=== PATIENT | female | born 1980 | race African-American/Black ===

== ENCOUNTER 2016-11-14 19:42 | Emergency (ER) | payer OTHER ==
[~2016-11-14] VITALS: Ht 165.1 cm; Wt 122.5 kg
--- NOTE | ~2016-11-14 | EKG ---
[place] [address] [address] [facility] [place] [address] ELECTROCARDIOGRAM REPORT Name: ISSAC BRARFORD Viveros Room #: 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 : 1980 Requested By: Ariadna Li Order Number: [id number] MD: Demetrius Nichols Measurements Intervals [place] Rate: 82 P: 36 [place]: 162 QRS: -11 QRSD: 99 T: 18 QT: 368 QTc: 430 Interpretive Statements Sinus rhythm Left ventricular hypertrophy Baseline wander in lead(s) V6 No previous ECG available for comparison Electronically Signed On 11-15-2016 7:49:27 CDT by Demetrius Nichols [email or web address] <ELECTRONICALLY SIGNED> By: Demetrius Nichols MD, [facility] 11/15/16 0749 30 30 Demetrius Nichols MD, FACC /EPI
[~2016-11-14 19:42] MED LIST: CLEOCIN HCL300 MG PO; NOHOMEMEDICATIONS; NORCO 5-325 TA1 EACH PO; PERCOCET 5-3251 EACH PO
[2016-11-14] MEDS ORDERED: ACETAMINOPHEN-1 EAC1 PO (19:54)
[2016-11-14] MEDS ORDERED: FLEXERIL PO (19:54)
[2016-11-14] MEDS ORDERED: IRON325 PO (19:54)
[2016-11-14] MEDS ORDERED: GLUCOPHAGE XR750 MG PO (19:54)
[2016-11-14 20:30] LABS: HEMATOCRIT 34.7 % (37.0-47.0); HEMOGLOBIN 10.9 gm/dL (12.0-15.0); MANUAL DIFF YES; MCH 20.7 pg (26.0-34.0); MCHC 31.5 g/dL (28.0-37.0); MCV 65.5 fL (80.0-100.0); PLATELET COUNT 334 thou/uL (150-400); RDW 25.7 % (10.5-14.5); WBC 8.9 thou/uL (4.0-11.0)
[2016-11-14 20:38] LABS: ANION GAP 7 mmol/L (7-16); BUN 10 mg/dL (7-18); CALCIUM 9.1 mg/dL (8.5-10.1); CHLORIDE 101 mmol/L (98-107); CO2 27 mmol/L (21-32); GLUCOSE 97 mg/dL (74-106); POTASSIUM 3.5 mmol/L (3.5-5.1); SODIUM 135 mmol/L (136-145)
[2016-11-14 20:46] LABS: TROPONIN-I < 0.04 ng/mL (<0.04-0.07)
[2016-11-14] MEDS ORDERED: NORCO 5-325 TA1 EACH PO (20:47)
[2016-11-14 20:49] LABS: ABSOLUTE NEUTROPHILS 4.5 thou/uL (1.4-8.2); TOTAL CELL COUNT 100
[2016-11-14 20:50] LABS: ANISOCYTOSIS 2+; HYPOCHROMASIA 2+; MICROCYTES 2+
[2016-11-14 20:51] LABS: POIKILOCYTOSIS SLIGHT; POLYCHROMASIA SLIGHT
[2016-11-14 21:20] VITALS: BP 138/74
== END 2016-11-14 21:20 | disposition home or self-care (01) ==
LOC: ER 19:42
PROVIDERS: Emergency Medicine
DX: M54.12 Radiculopathy, cervical region (principal); K21.9 Gastro-esophageal reflux disease without esophagitis; E66.9 Obesity, unspecified; I10 Essential (primary) hypertension; F17.210 Nicotine dependence, cigarettes, uncomplicated; Z88.6 Allergy status to analgesic agent

== ENCOUNTER 2018-11-29 14:27 | Emergency (ER) | payer OTHER ==
[~2018-11-29] VITALS: Ht 167.6 cm; Wt 133.8 kg
[~2018-11-29 14:27] MED LIST changes: +ACETAMINOPHEN-1 EAC1 PO; +FLEXERIL PO; +GLUCOPHAGE XR750 MG PO; +IRON325 PO
[2018-11-29 15:13] LABS: ABSOLUTE NEUTROPHILS 1.9 thou/uL (1.4-8.2); BASOPHILS 1.5 % (0.0-2.0); EOSINOPHILS 0.1 % (0.0-3.0); HEMATOCRIT 41.4 % (37.0-47.0); HEMOGLOBIN 13.6 gm/dL (12.0-15.0); LYMPHOCYTES 42.2 % (24.0-44.0); MCHC 32.8 g/dL (28.0-37.0); MCV 79.2 fL (80.0-100.0); MONOCYTES 6.1 % (1.0-8.0); PLATELET COUNT 265 thou/uL (150-400); POLYS 50.1 % (36.0-66.0); RBC 5.23 mil/uL (4.20-5.00); RDW 15.6 % (10.5-14.5); WBC 3.9 thou/uL (4.0-11.0)
[2018-11-29 15:19] LABS: ANION GAP 8 mmol/L (7-16); BUN 8 mg/dL (7-18); CALCIUM 9.4 mg/dL (8.5-10.1); CHLORIDE 97 mmol/L (98-107); CO2 27 mmol/L (21-32); CREATININE 1.1 mg/dL (0.6-1.0); GLUCOSE 119 mg/dL (74-106); POTASSIUM 3.4 mmol/L (3.5-5.1); SODIUM 132 mmol/L (136-145)
[2018-11-29 15:29] LABS: ALBUMIN 3.6 g/dL (3.4-5.0); SGOT 21 U/L (15-37); SGPT 23 U/L (30-65); TOTAL BILIRUBIN 0.2 mg/dL (<0.1-1.0); TOTAL PROTEIN 8.1 g/dL (6.4-8.2); TROPONIN-I <0.06 ng/mL (<0.06)
[2018-11-29] MEDS ORDERED: COZAAR 25 MG TA25 M1 PO (15:33)
[2018-11-29 16:28] LABS: URINE BILIRUBIN NEGATIVE (Negative); URINE BLOOD 1+ (Negative); URINE CLARITY CLEAR; URINE COLOR YELLOW; URINE GLUCOSE-RANDOM* NEGATIVE (Negative); URINE KETONES NEGATIVE (Negative); URINE LEUKOCYTES-REFLEX NEGATIVE (Negative); URINE NITRITE-REFLEX NEGATIVE (Negative); URINE PROTEIN (DIPSTICK) NEGATIVE (Negative); URINE UROBILINOGEN 0.2 E.U./dl (0.2-1.0)
[2018-11-29 16:38] LABS: BACTERIA-REFLEX 1-9 Few /HPF (None Seen); CASTS None Seen /LPF (None Seen); CRYSTALS None Seen /LPF (None Seen); SQUAMOUS 0-3 Few /LPF (0-3); URINE RBC 0-2 Rare /HPF (0-2); URINE WBC-REFLEX None Seen /HPF (0-5)
[2018-11-29] MEDS ORDERED: NORFLEX100 MG PO (17:31)
[2018-11-29] MEDS ORDERED: MOBIC15 MG PO (17:31)
[2018-11-29 17:54] VITALS: BP 132/89
--- NOTE | 2018-11-30 07:57 | EKG ---
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[facility] : 1980 Requested By: Christie Kinney Order Number: [id number] MD: Demetrius Nichols Measurements Intervals [place] Rate: 93 P: 38 [place]: 161 QRS: -20 QRSD: 95 T: 28 QT: 333 QTc: 415 Interpretive Statements Sinus rhythm Borderline left axis deviation Compared to ECG 11/14/2016 20:31:26 No significant change was found Electronically Signed On 11-30-2018 7:57:23 CDT by Demetrius Nichols [email or web address] ��������������������������������������������� <ELECTRONICALLY SIGNED> ���������������������������������������� By: Demetrius Nichols MD, [facility] ��������������������������������������������� 11/30/18 0757 1442 1442 Demetrius Nichols MD, FACC /EPI
== END 2018-11-29 17:55 | disposition home or self-care (01) ==
LOC: ER 14:27
PROVIDERS: Physician Assistant
DX: S76.112A Strain of left quadriceps muscle, fascia and tendon, initial encounter (principal); G44.209 Tension-type headache, unspecified, not intractable; R53.1 Weakness; I10 Essential (primary) hypertension; F17.210 Nicotine dependence, cigarettes, uncomplicated; Z86.718 Personal history of other venous thrombosis and embolism; Z98.51 Tubal ligation status; Z79.84 Long term (current) use of oral hypoglycemic drugs; Z79.899 Other long term (current) drug therapy; Z88.5 Allergy status to narcotic agent; X58.XXXA Exposure to other specified factors, initial encounter; Y93.89 Activity, other specified; Y92.89 Other specified places as the place of occurrence of the external cause; Y99.8 Other external cause status

== ENCOUNTER 2019-06-27 08:29 | Emergency (ER) | payer OTHER ==
[~2019-06-27] VITALS: Ht 172.7 cm; Wt 136.1 kg
[~2019-06-27 08:29] MED LIST changes: +COZAAR 25 MG TA25 M1 PO; +MOBIC15 MG PO; +NORFLEX100 MG PO
[2019-06-27] MEDS ORDERED: HYDROCHLOROTHIA25 M2 PO (08:46)
[2019-06-27] MEDS ORDERED: METFORMIN HCL500 M3 PO (08:46)
[2019-06-27 09:20] LABS: APTT 35.2 Seconds (24.5-32.8); PROTIME 10.1 Seconds (9.3-11.4)
[2019-06-27 09:24] LABS: URINE BILIRUBIN NEGATIVE (Negative); URINE BLOOD 3+ (Negative); URINE CLARITY CLOUDY; URINE GLUCOSE-RANDOM* NEGATIVE (Negative); URINE KETONES NEGATIVE (Negative); URINE LEUKOCYTES-REFLEX NEGATIVE (Negative); URINE NITRITE-REFLEX NEGATIVE (Negative); URINE PROTEIN (DIPSTICK) NEGATIVE (Negative); URINE UROBILINOGEN 0.2 E.U./dl (0.2-1.0)
[2019-06-27 09:25] LABS: URINE COLOR RED
[2019-06-27 09:26] LABS: CASTS None Seen /LPF (None Seen); CRYSTALS None Seen /LPF (None Seen); SQUAMOUS 0-3 Few /LPF (0-3)
[2019-06-27 09:27] LABS: BACTERIA-REFLEX 1-9 Few /HPF (None Seen); URINE RBC >20 Many /HPF (0-2); URINE WBC-REFLEX 0-5 Rare /HPF (0-5)
[2019-06-27 09:44] LABS: ABSOLUTE NEUTROPHILS 3.5 thou/uL (1.4-8.2); BASOPHILS 1.4 % (0.0-2.0); EOSINOPHILS 1.2 % (0.0-3.0); HEMATOCRIT 39.1 % (37.0-47.0); HEMOGLOBIN 12.4 gm/dL (12.0-15.0); MCH 24.9 pg (26.0-34.0); MCHC 31.7 g/dL (28.0-37.0); MCV 78.7 fL (80.0-100.0); PLATELET COUNT 391 thou/uL (150-400); POLYS 54.4 % (36.0-66.0); RBC 4.98 mil/uL (4.20-5.00); RDW 16.4 % (10.5-14.5); WBC 6.4 thou/uL (4.0-11.0)
[2019-06-27 09:47] LABS: CALCIUM 9.3 mg/dL (8.5-10.1); CREATININE 0.8 mg/dL (0.6-1.0); POTASSIUM 3.8 mmol/L (3.5-5.1)
[2019-06-27 09:53] LABS: ALBUMIN 3.6 g/dL (3.4-5.0); TOTAL BILIRUBIN 0.2 mg/dL (<0.1-1.0); TOTAL PROTEIN 7.8 g/dL (6.4-8.2)
[2019-06-27] MEDS ORDERED: TRAMADOL 50 MG50 MG PO (10:23)
[2019-06-27 10:33] VITALS: BP 139/81
== END 2019-06-27 10:36 | disposition home or self-care (01) ==
LOC: ER 08:29
PROVIDERS: Emergency Medicine
DX: D25.9 Leiomyoma of uterus, unspecified (principal); F17.210 Nicotine dependence, cigarettes, uncomplicated; Z98.51 Tubal ligation status; Z88.6 Allergy status to analgesic agent

== ENCOUNTER 2019-11-29 09:47 | Emergency (ER) | payer BC ==
[~2019-11-29] VITALS: Ht 170.2 cm; Wt 131.1 kg
[~2019-11-29 09:47] MED LIST changes: +HYDROCHLOROTHIA25 M2 PO; +METFORMIN HCL500 M3 PO; +TRAMADOL 50 MG50 MG PO
[2019-11-29 11:00] VITALS: BP 150/81
[2019-11-29] MEDS ORDERED: TRAMADOL 50 MG50 MG PO (11:03)
== END 2019-11-29 11:00 | disposition home or self-care (01) ==
LOC: ER 09:47
DX: M25.471 Effusion, right ankle (principal); I10 Essential (primary) hypertension; F17.210 Nicotine dependence, cigarettes, uncomplicated; Z88.6 Allergy status to analgesic agent; Z79.899 Other long term (current) drug therapy; Z98.51 Tubal ligation status

== ENCOUNTER 2019-12-05 10:38 | Emergency (ER) | payer BC ==
[~2019-12-05] VITALS: Ht 167.6 cm; Wt 123.4 kg
[2019-12-05] MEDS ORDERED: PREDNISONE 20 M20 MG PO (13:00)
[2019-12-05 13:04] VITALS: BP 141/92
[2019-12-05] MEDS ORDERED: BENADRYL25 MG PO (23:01)
[2019-12-06] MEDS ORDERED: HEARTBURN PREVE20 MG PO (01:09)
== END 2019-12-05 13:09 | disposition home or self-care (01) ==
LOC: ER 10:38
DX: T78.3XXA Angioneurotic edema, initial encounter (principal); I10 Essential (primary) hypertension; F17.210 Nicotine dependence, cigarettes, uncomplicated; Z98.51 Tubal ligation status; Z79.899 Other long term (current) drug therapy; Z88.8 Allergy status to other drugs, medicaments and biological substances

== ENCOUNTER 2019-12-05 22:51 | Emergency (ER) | payer BC ==
[~2019-12-05] VITALS: Ht 167.6 cm; Wt 129.7 kg
--- NOTE | ~2019-12-05 | EKG ---
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
--- NOTE | ~2019-12-05 | EKG ---
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
[~2019-12-05 22:51] MED LIST changes: +PREDNISONE 20 M20 MG PO
[2019-12-05] MEDS ORDERED: BENADRYL25 MG PO (23:01)
[2019-12-05 23:42] LABS: ABSOLUTE NEUTROPHILS 4.8 thou/uL (1.4-8.2); BASOPHILS 1.2 % (0.0-2.0); EOSINOPHILS 0.9 % (0.0-3.0); HEMATOCRIT 37.9 % (37.0-47.0); HEMOGLOBIN 12.8 gm/dL (12.0-15.0); LYMPHOCYTES 37.8 % (24.0-44.0); MCH 25.9 pg (26.0-34.0); MCHC 33.7 g/dL (28.0-37.0); MCV 76.8 fL (80.0-100.0); MONOCYTES 5.9 % (1.0-8.0); PLATELET COUNT 345 thou/uL (150-400); POLYS 54.2 % (36.0-66.0); RBC 4.94 mil/uL (4.20-5.00); WBC 8.8 thou/uL (4.0-11.0)
[2019-12-05 23:49] LABS: ANION GAP 12 mmol/L (7-16); BUN 6 mg/dL (7-18); CALCIUM 9.3 mg/dL (8.5-10.1); CHLORIDE 99 mmol/L (98-107); CO2 25 mmol/L (21-32); CREATININE 0.9 mg/dL (0.6-1.0); GLUCOSE 109 mg/dL (74-106); POTASSIUM 3.2 mmol/L (3.5-5.1); SODIUM 136 mmol/L (136-145)
[2019-12-06] LABS: ALBUMIN 3.9 g/dL (3.4-5.0); LIPASE 162 U/L (73-393); SGOT 18 U/L (15-37); SGPT 24 U/L (30-65); TOTAL BILIRUBIN 0.2 mg/dL (0.2-1.0); TROPONIN-I <0.06 ng/mL (<0.06)
[2019-12-06 01:08] VITALS: BP 163/101
[2019-12-06] MEDS ORDERED: HEARTBURN PREVE20 MG PO (01:09)
== END 2019-12-06 01:17 | disposition home or self-care (01) ==
LOC: ER 22:51
PROVIDERS: Emergency Medicine
DX: K13.0 Diseases of lips (principal); T78.3XXA Angioneurotic edema, initial encounter; I10 Essential (primary) hypertension; F17.210 Nicotine dependence, cigarettes, uncomplicated; Z79.899 Other long term (current) drug therapy; Z88.6 Allergy status to analgesic agent; Z88.8 Allergy status to other drugs, medicaments and biological substances; Z98.51 Tubal ligation status; Y92.89 Other specified places as the place of occurrence of the external cause

== ENCOUNTER 2019-12-13 07:43 | Emergency (ER) | payer BC ==
[~2019-12-13] VITALS: Ht 167.6 cm; Wt 126.1 kg
[~2019-12-13 07:43] MED LIST changes: +BENADRYL25 MG PO; +HEARTBURN PREVE20 MG PO
--- NOTE | 2019-12-13 08:15 | EKG ---
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
[2019-12-13 08:22] LABS: ABSOLUTE NEUTROPHILS 3.2 thou/uL (1.4-8.2); BASOPHILS 0.6 % (0.0-2.0); HEMATOCRIT 38.9 % (37.0-47.0); LYMPHOCYTES 42.6 % (24.0-44.0); MCH 25.9 pg (26.0-34.0); MCHC 33.5 g/dL (28.0-37.0); MCV 77.6 fL (80.0-100.0); MONOCYTES 5.6 % (1.0-8.0); PLATELET COUNT 346 thou/uL (150-400); POLYS 50.2 % (36.0-66.0); RBC 5.02 mil/uL (4.20-5.00); RDW 16.5 % (10.5-14.5); WBC 6.3 thou/uL (4.0-11.0)
[2019-12-13 08:30] LABS: ANION GAP 10 mmol/L (7-16); BUN 7 mg/dL (7-18); CALCIUM 9.3 mg/dL (8.5-10.1); CHLORIDE 100 mmol/L (98-107); CO2 28 mmol/L (21-32); CREATININE 0.8 mg/dL (0.6-1.0); GLUCOSE 118 mg/dL (74-106); SODIUM 138 mmol/L (136-145)
[2019-12-13 08:40] LABS: ALBUMIN 3.9 g/dL (3.4-5.0); LIPASE 154 U/L (73-393); SGOT 24 U/L (15-37); SGPT 28 U/L (30-65); TOTAL BILIRUBIN 0.5 mg/dL (0.2-1.0); TROPONIN-I <0.06 ng/mL (<0.06)
[2019-12-13 10:52] VITALS: BP 154/85
== END 2019-12-13 10:55 | disposition home or self-care (01) ==
LOC: ER 07:43
PROVIDERS: Emergency Medicine
DX: R07.89 Other chest pain (principal); I10 Essential (primary) hypertension; F17.210 Nicotine dependence, cigarettes, uncomplicated; Z88.6 Allergy status to analgesic agent; Z79.899 Other long term (current) drug therapy; Z98.51 Tubal ligation status

== ENCOUNTER 2019-12-16 17:23 | Emergency (ER) | payer BC ==
[~2019-12-16] VITALS: Ht 167.6 cm; Wt 123.4 kg
[2019-12-16 18:03] LABS: HEMATOCRIT 40.2 % (37.0-47.0); HEMOGLOBIN 13.3 gm/dL (12.0-15.0); MCH 25.6 pg (26.0-34.0); MCV 77.5 fL (80.0-100.0); PLATELET COUNT 319 thou/uL (150-400); RBC 5.19 mil/uL (4.20-5.00); RDW 16.5 % (10.5-14.5); WBC 7.1 thou/uL (4.0-11.0)
[2019-12-16 18:11] LABS: URINE BILIRUBIN NEGATIVE (Negative); URINE BLOOD 3+ (Negative); URINE CLARITY CLEAR; URINE GLUCOSE-RANDOM* NEGATIVE (Negative); URINE KETONES NEGATIVE (Negative); URINE LEUKOCYTES-REFLEX 1+ (Negative); URINE NITRITE-REFLEX NEGATIVE (Negative); URINE PROTEIN (DIPSTICK) TRACE (Negative); URINE UROBILINOGEN 0.2 E.U./dl (0.2-1.0)
[2019-12-16 18:12] LABS: URINE COLOR LIGHT RED
[2019-12-16 18:17] LABS: CALCIUM 8.9 mg/dL (8.5-10.1); CREATININE 0.9 mg/dL (0.6-1.0); TOTAL BILIRUBIN 0.2 mg/dL (0.2-1.0); TOTAL PROTEIN 8.2 g/dL (6.4-8.2)
[2019-12-16 18:23] LABS: ABSOLUTE NEUTROPHILS 1.6 thou/uL (1.4-8.2); PLATELET ESTIMATE NORMAL; POTASSIUM 2.7 mmol/L (3.5-5.1)
[2019-12-16] MEDS ORDERED: KLOR-CON M2020 MEQ PO (19:00)
[2019-12-16] MEDS ORDERED: PROCTOCORT28.4 GM RECTAL ×2 (19:09→19:13)
[2019-12-16 19:21] LABS: CASTS None Seen /LPF (None Seen); CRYSTALS None Seen /LPF (None Seen); SQUAMOUS 0-3 Few /LPF (0-3)
[2019-12-16 19:22] VITALS: BP 135/87
[2019-12-16 19:22] LABS: BACTERIA-REFLEX 1-9 Few /HPF (None Seen); URINE RBC 3-10 Few /HPF (0-2); URINE WBC-REFLEX 0-5 Rare /HPF (0-5)
--- NOTE | 2019-12-17 16:05 | EKG ---
[facility] [place] [address] ELECTROCARDIOGRAM REPORT Name: WINNIE BRAR Room #: [facility]P [facility]#: [id number] Admission: 12/16/19 Attend Phys: Discharge: 12/16/19 Date of : 82 Report #: [id number] THIS REPORT FOR: cc: FAM - Family physician unknown FAM - Family physician unknown John Crowe MD ~ THIS REPORT FOR: //name// 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 : 1980 Requested By: Jasiel Quintanilla Order Number: [id number] MD: John Crowe Measurements Intervals [place] Rate: 75 P: 38 [place]: 174 QRS: -19 QRSD: 100 T: 2 QT: 386 QTc: 432 Interpretive Statements Sinus rhythm Probable left atrial enlargement Left ventricular hypertrophy Inferior infarct, old Compared to ECG 12/13/2019 07:55:17 Myocardial infarct finding now present Electronically Signed On 12-17-2019 16:05:15 CDT by John Crowe [email or web address] <ELECTRONICALLY SIGNED> By: John Crowe MD 12/17/19 1605 1847 46 John Crowe MD /EPI
[2019-12-17] MEDS ORDERED: KLOR-CON20 ME1 PO (23:00)
== END 2019-12-16 19:31 | disposition home or self-care (01) ==
LOC: ER 17:23
PROVIDERS: Nurse Practitioner
DX: K62.5 Hemorrhage of anus and rectum (principal); E87.6 Hypokalemia; R31.9 Hematuria, unspecified; N64.4 Mastodynia; I10 Essential (primary) hypertension; Z98.51 Tubal ligation status; Z79.899 Other long term (current) drug therapy; Z88.8 Allergy status to other drugs, medicaments and biological substances; F17.210 Nicotine dependence, cigarettes, uncomplicated

== ENCOUNTER 2019-12-17 18:56 | Emergency (ER) | payer BC ==
[~2019-12-17] VITALS: Ht 160 cm; Wt 124.7 kg
[~2019-12-17 18:56] MED LIST changes: +KLOR-CON M2020 MEQ PO; +PROCTOCORT28.4 GM RECTAL
[2019-12-17 20:09] LABS: URINE BILIRUBIN NEGATIVE (Negative); URINE BLOOD 3+ (Negative); URINE CLARITY CLEAR; URINE COLOR LIGHT RED; URINE GLUCOSE-RANDOM* NEGATIVE (Negative); URINE KETONES NEGATIVE (Negative); URINE LEUKOCYTES-REFLEX TRACE (Negative); URINE NITRITE-REFLEX NEGATIVE (Negative); URINE PROTEIN (DIPSTICK) TRACE (Negative); URINE SPECIFIC GRAVITY <= 1.005 (1.005-1.035); URINE UROBILINOGEN 0.2 E.U./dl (0.2-1.0)
[2019-12-17 20:20] LABS: MUCUS 0-3 Light strn/LPF (None Seen); SQUAMOUS 4-10 Moderate /LPF (0-3); URINE RBC 3-10 Few /HPF (0-2)
[2019-12-17 20:21] LABS: CASTS None Seen /LPF (None Seen); CRYSTALS None Seen /LPF (None Seen); URINE WBC-REFLEX 0-5 Rare /HPF (0-5)
[2019-12-17 20:22] LABS: BACTERIA-REFLEX 1-9 Few /HPF (None Seen)
[2019-12-17 21:00] LABS: ABSOLUTE NEUTROPHILS 3.2 thou/uL (1.4-8.2); BASOPHILS 0.8 % (0.0-2.0); EOSINOPHILS 0.7 % (0.0-3.0); HEMATOCRIT 38.5 % (37.0-47.0); HEMOGLOBIN 12.9 gm/dL (12.0-15.0); LYMPHOCYTES 53.6 % (24.0-44.0); MCH 25.9 pg (26.0-34.0); MCHC 33.5 g/dL (28.0-37.0); MCV 77.5 fL (80.0-100.0); MONOCYTES 4.4 % (1.0-8.0); PLATELET COUNT 322 thou/uL (150-400); POLYS 40.5 % (36.0-66.0); RBC 4.97 mil/uL (4.20-5.00); RDW 15.9 % (10.5-14.5); WBC 7.9 thou/uL (4.0-11.0)
[2019-12-17 21:08] LABS: CALCIUM 9.3 mg/dL (8.5-10.1); CREATININE 0.8 mg/dL (0.6-1.0)
[2019-12-17 21:10] LABS: POTASSIUM 2.9 mmol/L (3.5-5.1)
[2019-12-17 21:14] LABS: ALBUMIN 4.1 g/dL (3.4-5.0); TOTAL BILIRUBIN 0.4 mg/dL (0.2-1.0); TOTAL PROTEIN 8.1 g/dL (6.4-8.2)
[2019-12-17] MEDS ORDERED: KLOR-CON20 ME1 PO (23:00)
[2019-12-18 00:22] VITALS: BP 148/83
[2019-12-19] MEDS ORDERED: TRIAMTERENE50 MG PO (21:49)
== END 2019-12-18 00:22 | disposition home or self-care (01) ==
LOC: ER 18:56
PROVIDERS: Physician Assistant
DX: E87.6 Hypokalemia (principal); R10.11 Right upper quadrant pain; R10.12 Left upper quadrant pain; F17.210 Nicotine dependence, cigarettes, uncomplicated; I10 Essential (primary) hypertension; Z88.8 Allergy status to other drugs, medicaments and biological substances; Z88.6 Allergy status to analgesic agent; Z79.899 Other long term (current) drug therapy; Z98.51 Tubal ligation status

== ENCOUNTER 2019-12-19 19:54 | Emergency (ER) | payer BC ==
[~2019-12-19] VITALS: Ht 170.2 cm; Wt 113.4 kg
[~2019-12-19 19:54] MED LIST changes: +KLOR-CON20 ME1 PO
[2019-12-19 20:38] LABS: ABSOLUTE NEUTROPHILS 4.6 thou/uL (1.4-8.2); BASOPHILS 1.3 % (0.0-2.0); HEMATOCRIT 37.9 % (37.0-47.0); HEMOGLOBIN 12.7 gm/dL (12.0-15.0); LYMPHOCYTES 43.2 % (24.0-44.0); MCH 25.9 pg (26.0-34.0); MCHC 33.5 g/dL (28.0-37.0); MCV 77.2 fL (80.0-100.0); MONOCYTES 4.9 % (1.0-8.0); PLATELET COUNT 322 thou/uL (150-400); POLYS 49.6 % (36.0-66.0); RBC 4.92 mil/uL (4.20-5.00); RDW 16.9 % (10.5-14.5); WBC 9.3 thou/uL (4.0-11.0)
[2019-12-19 21:10] LABS: ANION GAP 13 mmol/L (7-16); BUN 6 mg/dL (7-18); CALCIUM 9.2 mg/dL (8.5-10.1); CHLORIDE 100 mmol/L (98-107); CO2 24 mmol/L (21-32); CREATININE 0.9 mg/dL (0.6-1.0); GLUCOSE 97 mg/dL (74-106); POTASSIUM 3.7 mmol/L (3.5-5.1); SODIUM 137 mmol/L (136-145)
[2019-12-19 21:20] LABS: ALBUMIN 4.2 g/dL (3.4-5.0); SGOT 26 U/L (15-37); SGPT 31 U/L (30-65); TOTAL BILIRUBIN 0.2 mg/dL (0.2-1.0); TOTAL PROTEIN 7.6 g/dL (6.4-8.2); TROPONIN-I <0.06 ng/mL (<0.06)
[2019-12-19] MEDS ORDERED: TRIAMTERENE50 MG PO (21:49)
[2019-12-19 21:54] VITALS: BP 176/72
--- NOTE | 2019-12-20 08:45 | EKG ---
[facility] [place] [address] ELECTROCARDIOGRAM REPORT Name: WINNIE BRAR Room #: [facility]P [facility]#: [id number] Admission: 12/19/19 Attend Phys: Discharge: 12/19/19 Date of : 82 Report #: [id number] THIS REPORT FOR: cc: TK - Gogo family physician/PCP TK - Gogo family physician/PCP Demetrius Nichols MD [facility] THIS REPORT FOR: //name// [facility] ED Test Date: 2019-12-19 Test Time: 20:18:41 Pat Name: WINNIE BRAR Department: Room: Gender: Buccaro: LAITH : 1980 Requested By: Jasiel Quintanilla Order Number: [id number] MD: Demetrius Nichols Measurements Intervals [place] Rate: 80 P: 35 [place]: 156 QRS: -20 QRSD: 101 T: 19 QT: 384 QTc: 443 Interpretive Statements Sinus rhythm Poor R wave progression Inferior infarct, old Compared to ECG 12/16/2019 18:47:01 No significant changes Electronically Signed On 12-20-2019 8:45:44 CDT by Demetrius Nichols [email or web address] <ELECTRONICALLY SIGNED> By: Demetrius Nichols MD, [facility] 12/20/19 0845 17 17 Demetrius Nichols MD, [facility] /EPI
== END 2019-12-19 22:02 | disposition home or self-care (01) ==
LOC: ER 19:54
PROVIDERS: Nurse Practitioner
DX: F41.9 Anxiety disorder, unspecified (principal); M79.10 Myalgia, unspecified site; R53.1 Weakness; I10 Essential (primary) hypertension; F17.210 Nicotine dependence, cigarettes, uncomplicated; Z98.51 Tubal ligation status; Z79.899 Other long term (current) drug therapy; Z88.8 Allergy status to other drugs, medicaments and biological substances